=== PATIENT | male | born 1970 | race Native Hawaiian/Other Pacific Islander ===

== ENCOUNTER 2016-12-24 14:39 | Emergency (ER) | payer MEDICARE ==
[2016-12-24 14:55] VITALS: RESP 20
[2016-12-24] MEDS ORDERED: Albuterol-Ipratrop 3 mg / 0.5 (3 ml) UD IH STA (16:00)
[2016-12-24] MEDS ORDERED: Sodium Chloride 0.9% 1,000 ML IV ONE (16:00)
--- NOTE | 2016-12-24 16:00 | C.PDOC ---
History Of Present Illness 46M c/o productive cough x 1 week and fever x 3 days. he has taken only cough medicine at home. pmh only htn on meds. traveled back December 15 after a couple weeks in [place]. Time Seen by Provider: 12/24/16 15:05 Chief Complaint (Nursing): Cough, Cold, Congestion Past Medical History Vital Signs: Last Vital Signs Temp 98.6 F 12/24/16 18:38 Pulse 83 12/24/16 18:38 Resp 20 12/24/16 18:38 BP 119/70 12/24/16 18:38 Pulse Ox 97 12/24/16 18:38 - Medical History PMH: HTN - [facility] Procedures OPEN RED-INT FIX HUMERUS (03/26/04) PTERYGIUM EXCISION NEC (07/06/97) TETANUS TOXOID ADMINIST (12/27/14) Family History: States: Unknown Family Hx - Social History Hx Tobacco Use: No Hx Alcohol Use: No Hx Substance Use: No - Immunization History Hx Tetanus Toxoid Vaccination: No Hx Influenza Vaccination: No Hx Pneumococcal Vaccination: No Review Of Systems Constitutional: Positive for: Fever, Chills, Malaise Eyes: Negative for: Conjunctivae Inflammation, Redness ENT: Positive for: Nose Discharge (epistaxis) Cardiovascular: Negative for: Chest Pain Respiratory: Positive for: Cough, Shortness of Breath, Sputum Gastrointestinal: Negative for: Nausea, Vomiting, Abdominal Pain, Diarrhea Genitourinary: Negative for: Dysuria Neurological: Negative for: Weakness, Numbness, Headache Physical Exam - Physical Exam Appears: Non-toxic, No Acute Distress Skin: Warm, Dry Head: Atraumatic Eye(s): bilateral: PERRL Oral Mucosa: Moist Neck: Normal ROM Cardiovascular: Rhythm Regular, No Murmur Respiratory: No Decreased Breath Sounds, No Accessory Muscle Use, No Rales, No Rhonchi, No Wheezing Gastrointestinal/Abdominal: Soft, No Tenderness Extremity: No Swelling Neurological/Psych: Oriented x3, Normal Motor, Normal Sensation ED Course And Treatment - Laboratory Results Result Diagrams: 12/24/16 16:40 12/24/16 16:40 O2 Sat by Pulse Oximetry: 96 Medical Decision Making Medical Decision Making: CXR: IMPRESSION: Bibasilar patchy lower lobe opacity suspected to reflect subsegmental atelectasis. Developing infiltrate cannot be entirely excluded in the proper clinical setting. Correlate clinically. Pt appears well, no distress, non-toxic. Disc plan for rx and RTR. Disposition - Disposition Referrals: [facility] [Outside] Disposition: HOME/ ROUTINE Disposition Time: 18:38 Condition: STABLE Additional Instructions: Please follow up with your doctor on Wednesday. Return to the ER for any worsening symptoms, difficulty breathing or for any other concerns. Prescriptions: Azithromycin 250 mg PO DAILY #4 tab Cefuroxime Axetil [Cefuroxime] 500 mg PO BID #20 tablet Instructions: Community Acquired Pneumonia (ED) Forms: General Discharge Instructions - Clinical Impression Clinical Impression: Pneumonia
--- NOTE | 2016-12-24 16:29 | RAD ---
HISTORY: cough fever COMPARISON: Chest and left rib series performed 12/27/14 TECHNIQUE: Chest PA and lateral FINDINGS: LUNGS: Bibasilar patchy lower lobe opacity suspected to reflect subsegmental atelectasis. Developing infiltrate cannot be entirely excluded in the proper clinical setting. Correlate clinically. Please note that chest x-ray has limited sensitivity for the detection of pulmonary masses. PLEURA: No significant pleural effusion identified. No definite pneumothorax . CARDIOVASCULAR: Heart size appears top normal. OSSEOUS STRUCTURES: No acute osseous abnormality identified. VISUALIZED UPPER ABDOMEN: Unremarkable. OTHER FINDINGS: None. IMPRESSION: Bibasilar patchy lower lobe opacity suspected to reflect subsegmental atelectasis. Developing infiltrate cannot be entirely excluded in the proper clinical setting. Correlate clinically.
[2016-12-24] MEDS ORDERED: Azithromycin 500 MG in Sodium Chloride 0.9% 250 ML IVPB STA (16:36)
[2016-12-24 16:46] LABS: BASO # 0.2 K/uL (0.0-0.2); BASO % 1.3 % (0.0-2.0); EOS % 0.3 % (0.0-4.0); HEMATOCRIT 35.7 % (35.0-51.0); LYMPH # 3.6 K/uL (1.0-4.3); LYMPH % 27.1 % (20.0-40.0); MEAN CELL VOLUME 81.1 fL (80.0-94.0); MEAN CORPUSCULAR HEMOGLOBIN 27.5 pg (27.0-31.0); MEAN CORPUSCULAR HGB CONC 33.9 g/dL (33.0-37.0); MEAN PLATELET VOLUME 7.9 fL (7.2-11.7); MONO # 1.2 K/uL (0.0-0.8); MONO % 8.7 % (0.0-10.0); NRBC % 0.1 % (0.0-2.0); RED CELL DISTRIBUTION WIDTH 13.5 % (11.5-14.5); WHITE BLOOD COUNT 13.4 K/uL (4.8-10.8)
[2016-12-24] MEDS ORDERED: Albuterol-Ipratrop 3 mg / 0.5 (3 ml) UD ONE (16:48)
[2016-12-24 16:53] LABS: CHLORIDE 95 mmol/L (98-107)
[2016-12-24] MEDS ORDERED: cefTRIAXone IV 1 gm in Dextros 50 ML IVPB ONE (16:53)
[2016-12-24 16:54] LABS: POTASSIUM 3.5 mmol/L (3.6-5.2); SODIUM 130 mmol/L (132-148)
[2016-12-24 16:56] LABS: ALB/GLOB RATIO 0.9 (1.0-2.1); AST/SGOT 48 U/L (17-59); BILIRUBIN,TOTAL 0.7 mg/dL (0.2-1.3); BLOOD UREA NITROGEN 19 mg/dL (9-20); CARBON DIOXIDE 23 mmol/L (22-30); GFR AFRICAN-AMERICAN > 60; TOTAL PROTEIN 8.2 g/dL (6.3-8.3)
[2016-12-24 16:57] LABS: ALKALINE PHOSPHATASE 74 U/L (38-126); ALT/SGPT 46 U/L (21-72); GLUCOSE,RANDOM 140 mg/dL (75-110)
[2016-12-24] MEDS ORDERED: Azithromycin 500mg/250ML NS 500 MG/250 ML BAG IVPB ONE (17:32)
[2016-12-24 18:42] VITALS: BP 119/70; PULSE 83; TEMP 98.6
[2016-12-28 18:42] VITALS: O2SAT 96
--- NOTE | 2017-01-19 13:50 | CARD ---
APPROVED REPORT EKG Measurement Heart [id number] <Conclusion> Normal sinus rhythm Prolonged QT Abnormal ECG
== END 2016-12-24 18:42 | disposition home or self-care (01) ==
LOC: C.ER 14:39
DX: J18.9 Pneumonia, unspecified organism (principal)
CPT/HCPCS: 71020; 80053; 85025; 87804; 94640; 96365; 96367; 99284; J0456; J0696; J7040; J7050